=== PATIENT | male | born 1945 | race Caucasian/White ===

== ENCOUNTER 2018-03-25 18:51 | Inpatient (IN) | payer MEDICARE ==
[~2018-03-25 18:51] MED LIST: ISOVUE-370 76%-LOCM 1 ML ONE
[2018-03-25] MEDS ORDERED: Metoprolol Tartrate 5 MG/5 ML VIAL ONE (19:03)
[2018-03-25] MEDS ORDERED: methylPREDNISolone Sod Succ/PF 125 MG/2 ML VIAL ONE (19:06)
[2018-03-25 19:21] LABS: Hemoglobin 16.3 g/dL (14.0-18.0); Mean Corpuscular Hemoglobin 29.1 pg (27.0-31.0); Mean Corpuscular Volume 90.9 fl (80.0-94.0); Mean Platelet Volume 6.3 fL (7.4-10.4); Platelet Count 325 thou/uL (130-400); Red Blood Cell (RBC) Count 5.58 mill/uL (4.70-6.10); White Blood Cell (WBC) Count 20.7 thou/uL (4.8-10.8)
[2018-03-25] MEDS ORDERED: Albuterol Sulfate 2.5 mg/3 ml Neb ONE ×4 (19:28→21:05)
[2018-03-25 19:30] LABS: ALT (SGPT) 25 U/L (8-55); AST (SGOT) 17 U/L (5-34); Albumin 4.1 g/dL (3.4-4.8); Alkaline Phosphatase 75 U/L (40-150); Anion Gap 16 mmol/L (10-20); BUN (Urea Nitrogen) 14 mg/dL (8.4-25.7); Bilirubin, Total 1.5 mg/dL (0.2-1.2); Calc. Creatinine Clearance 0 mL/min (70-130); Calcium 9.7 mg/dL (7.8-10.44); Carbon Dioxide 30 mmol/L (23-31); Chloride 100 mmol/L (98-107); Estimated GFR-MDRD 68; Glucose 114 mg/dL (83-110); Magnesium 2.1 mg/dL (1.6-2.6); Protein, Total 7.1 g/dL (5.8-8.1); Sodium 142 mmol/L (136-145)
[2018-03-25 19:35] LABS: Band 1 % (5-11); CKMB 2.2 ng/mL (0-6.6); Eosinophils 1 % (0-10); Lymphocytes 8 % (21-51); MDiff Complete? YES; Monocytes 3 % (0-10); Neutrophil 87 % (42-75); PLT Morphology Comment Appears Adequate; RBC Morphology Normal; Troponin I 0.043 ng/mL (< 0.028)
[2018-03-25 20:27] LABS: INR-International Normal Ratio 1.1; Prothrombin Time 14.1 SEC (12.0-14.7)
[2018-03-25] MEDS ORDERED: Magnesium Sulfate 2 GM/100 ML BAG ONE (20:29)
[2018-03-25] MEDS ORDERED: cefTRIAXone\\ROCEPHIN 2 GM VIAL ONE (20:49)
[2018-03-25] MEDS ORDERED: Ketorolac Tromethamine 30 MG/ML VIAL ONE (21:02)
--- NOTE | 2018-03-25 21:09 | RAD ---
CHEST ONE VIEW: HISTORY: Difficulty breathing. COMPARISON: None. FINDINGS: Atherosclerosis of the aorta. Normal cardiac silhouette. The pulmonary vessels and hilum are normal . The costophrenic angles are clear. Hyperinflation without consolidation or mass. No pneumothorax or osseous abnormalities. IMPRESSION: 1. Atherosclerosis. 2. Hyperinflation/chronic obstructive pulmonary disease. POS: [facility]
[2018-03-25 22:07] LABS: Bilirubin Negative (Negative); Blood, Urine Negative (Negative); Clarity CLEAR (Clear); Glucose, Urine (Dipstick) Negative (Negative); Leukocyte Negative (Negative); Nitrite Negative (Negative); Protein, Urine (Dipstick) 100 mg/dL (Neg-Trace); Specific Gravity, Urine 1.016 (1.002-1.036); pH, Urine 7.5 (5.0-9.0)
[2018-03-25 22:08] LABS: Bacteria/HPF None Seen HPF (None Seen); Hyaline Casts/LPF 0-3 HYALINE CAST LPF (0-3 Hyaline); Pathc Cast-AUWi Flag 0.14 (0-2.49); RBC/HPF 0-3 HPF (0-3); Squamous Epithelial 0-3 HPF (0-3); WBC/HPF 0-3 HPF (0-3)
--- NOTE | 2018-03-25 22:10 | CT ---
CT ANGIOGRAM CHEST: HISTORY: Shortness of breath. COMPARISON: None. TECHNIQUE: A CT angiogram of the chest is performed in the axial plane. Three-dimension reformatted images are submitted for interpretation. FINDINGS: The trachea and central bronchi appear to be patent. There is deformity of the trachea, which is lik shannan secondary to COPD/tracheal malacia. No obstructing masses. Emphysematous changes in the lung pa renchyma. No suspicious masses or consolidation. No pneumothorax. No pleural effusion. The visualized upper solid organs are grossly unremarkable. Evaluation is limited by motion degradat ion. There is no mediastinal mass, lymphadenopathy, or hematoma. Heart size is within normal limits. No pericardial effusion. Coronary artery calcifications are identified. There are no lytic or blastic lesions in the osseous structures. Adequate contrast opacification in the pulmonary arterial system, to the level of the segmental arter ies. No filling defect to suggest thromboembolism. IMPRESSION: 1. No evidence of pulmonary artery embolism to the level of the segmental arteries. 2. 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 No evidence of a mass within the trachea. POS: [facility]
[2018-03-26] MEDS ORDERED: Albuterol Sulfate 2.5 mg/3 ml Neb NEB PRN (01:15)
[2018-03-26 01:24] VITALS: BMI 21.9
[2018-03-26] MEDS ORDERED: hydrALAZINE 20 MG/ML VIAL SLOW IVP PRN (04:12)
[2018-03-26] MEDS ORDERED: Benzonatate 100 MG CAP PO PRN (04:12)
[2018-03-26] MEDS ORDERED: cloNIDine 0.1 MG TAB PO PRN (04:12)
[2018-03-26] MEDS ORDERED: Ondansetron ODT 4 MG TAB PO PRN (04:12)
[2018-03-26] MEDS ORDERED: Ondansetron HCl/PF 4 MG/2 ML Vial IVP PRN (04:12)
[2018-03-26] MEDS ORDERED: Acetaminophen 500 MG TAB PO PRN (04:12)
[2018-03-26] MEDS ORDERED: cefTRIAXone\\ROCEPHIN 2 GM in Sodium Chloride 0.9% 100 ML IVPB SCH (08:00)
[2018-03-26] MEDS ORDERED: Famotidine 20 MG TAB PO SCH (09:00)
[2018-03-26] MEDS ORDERED: Prevnar 13-Val Conj/PF 0.5 ML SYRINGE IM ONE (09:00)
--- NOTE | 2018-03-26 09:49 | PDOC.PN ---
- Subjective Encounter Start Date: 03/26/18 Encounter Start Time: 09:48 Mr. Posada was seen today in follow-up. He says he was feling fine until this morning, when he has gotten short of breath once again. He has audible wheezing from across the room. - Objective Resuscitation Status: Resuscitation Status FULL:Full Resuscitation MAR Reviewed: Yes Vital Signs & Weight: Vital Signs (12 hours) Temp Pulse Resp BP Pulse Ox 03/26/18 09:40 97.9 F 89 20 174/83 H 94 L 03/26/18 00:40 98.0 F 96 18 137/85 94 L Weight Weight 157 lb 9.6 oz I&O: 03/25/18 03/26/18 03/27/18 06:59 06:59 06:59 Output Total 250 Balance -250 Result Diagrams: 03/25/18 19:04 03/25/18 19:04 Phys Exam - Physical Examination HEENT: PERRLA Respiratory: wheezing present + wheezing bilaterally with a long expiratory phase decreased air movement Cardiovascular: RRR, no significant murmur, no rub Gastrointestinal: soft, non-tender, positive bowel sounds Musculoskeletal: no edema Dx/Plan (1) Acute and chronic respiratory failure Code(s): J96.20 - ACUTE AND CHR RESP FAILURE, UNSP W HYPOXIA OR HYPERCAPNIA Status: Acute (2) COPD exacerbation Code(s): J44.1 - CHRONIC OBSTRUCTIVE PULMONARY DISEASE W (ACUTE) EXACERBATION Status: Acute (3) Hypotension Status: Acute - Plan * Acute respiratory failure due to COPD exacerbation- continue Duonebs, and Steroids IV * Will add empiric antibiotics, due to the elevated WBC count * HTN - blood pressure is stable * ? DM- will monitor his blood glucose, and cover with SSI if needed * Continue home medications for BPH, and COPD * No evidence of AFIB * Add Lovenox- for DVT prophylaxis.
[2018-03-26] MEDS ORDERED: Dextrose 5% in Water 1,000 ML IV PRN (09:58)
[2018-03-26] MEDS ORDERED: Dextrose 50% Abboject 50 ML SYRINGE SLOW IVP PRN (09:58)
[2018-03-26] MEDS: cefTRIAXone\\ROCEPHIN 1 GM in Sodium Chloride 0.9% 100 ML IVPB SCH (10:22)
[2018-03-26] MEDS: Azithromycin 500 MG in Sodium Chloride 0.9% 250 ML 250 ML IVPB SCH (11:22)
--- NOTE | 2018-03-26 11:50 | HP ---
DATE OF ADMISSION: 03/25/2018 PRIMARY CARE PROVIDER: Dr. Blount in [facility], [place]. CHIEF COMPLAINT: Shortness of breath. HISTORY OF PRESENT ILLNESS: This is a 72-year-old male who was life-flighted to [facility] Emergency Department from [facility] after patient states he had increasing shortness of breath in last 24 to 48 hours. The patient states he has a history of chronic obstructive pulmona ry disease with treatment to include metered-dose inhalers and home nebulizer. The patient states he has been using these medications appropriately and frequently over the last several days. The patie nt apparently had sought medical attention x2 episodes prior to the admission to [facility] in the last month. The patient denies any current smoking over the last 15 years, but does have a history of COPD. The patient denies any specific documented fever or chills or family me mbers with similar symptoms. The patient denied any blood in the sputum or decreased exercise tolera nce. In the emergency room, the patient underwent general evaluation including portable chest x-ray showing no acute cardiopulmonary process. Hyperinflation changes consistent with chronic obstructive pulmonary disease. CT angiogram of the chest dated 03/25/2018, showed no evidence for pulmonary art marquise embolism. EKG dated 03/25/2018, by my interpretation shows sinus mechanism with heart rates in t he 90s. Normal R-wave progression noted in the precordial leads. Left axis deviation. ASSESSMENT AND PLAN: 1. Acute dyspnea. Suspect multifactorial including chronic obstructive pulmonary disease. Continue general pulmonary supportive measures. Oxygen supplementation as clinically indicated. 2. Chronic obstructive pulmonary disease. Questionable acute exacerbation. We will continue genera l supportive management. Oxygen to maintain O2 saturations greater than or equal to 90%. DuoNeb 3 m L nebulized q.i.d. p.r.n. 3. Neutrophilic leukocytosis. Suspect secondarily to #1. No focal infectious process identified. Repeat CBC in the a.m. 4. Atrial arrhythmia. Questionable atrial fibrillation with rapid ventricular response in the emerg ency room. The patient currently in sinus rhythm. We will continue supportive management. Continue telemetry monitoring. 5. Prophylaxis. Sequential compression devices while in bed. Protonix 40 mg p.o. daily. 6. Code status is FULL. Surrogate medical decision maker is patient's son, Dwain Posada.
[2018-03-26] MEDS: Isosorbide Mononitrate 20 MG TAB PO SCH ×2 (14:16→21:31)
[2018-03-26] MEDS: hydrALAZINE 25 MG TAB PO SCH ×2 (14:16→21:30)
[2018-03-26] MEDS: HumaLOG 300 UNITS/3 ML VIAL SC PRN (17:31)
[2018-03-26] MEDS: Budesonide 0.5 MG/2 ML NEB NEB SCH (20:05)
[2018-03-26] MEDS ORDERED: Non-Formulary Item 1 EACH (Insulin Glargine,Hum.Rec.Anlog [Lantus Solostar] 30 UNIT) SQ SCH (21:00)
[2018-03-26] MEDS: Gabapentin 300 MG CAP PO SCH (21:30)
[2018-03-26] MEDS: Bupropion 150 MG XL TAB PO SCH (21:30)
[2018-03-26] MEDS: Insulin Glargine 30 UNITS in Pre-Filled Syringe 1 EACH SC SCH (21:31)
[2018-03-26] MEDS: Rosuvastatin 20 MG TAB PO SCH (21:31)
[2018-03-27 05:44] LABS: Band 2 % (5-11); Hemoglobin 12.6 g/dL (14.0-18.0); Lymphocytes 12 % (21-51); MDiff Complete? YES; Mean Corpuscular HGB CONC 32.1 g/dL (32.0-36.0); Mean Corpuscular Hemoglobin 29.3 pg (27.0-31.0); Mean Corpuscular Volume 91.3 fl (80.0-94.0); Mean Platelet Volume 6.9 fL (7.4-10.4); Monocytes 4 % (0-10); Neutrophil 82 % (42-75); PLT Morphology Comment Appears Adequate; Platelet Count 250 thou/uL (130-400); RBC Distribution Width 14.2 % (11.5-14.5); Red Blood Cell (RBC) Count 4.29 mill/uL (4.70-6.10); White Blood Cell (WBC) Count 19.2 thou/uL (4.8-10.8)
[2018-03-27 06:20] LABS: Anion Gap 10 mmol/L (10-20); BUN (Urea Nitrogen) 35 mg/dL (8.4-25.7); Calc. Creatinine Clearance 61 mL/min (70-130); Calcium 8.2 mg/dL (7.8-10.44); Carbon Dioxide 26 mmol/L (23-31); Chloride 105 mmol/L (98-107); Estimated GFR-MDRD 66; Glucose 247 mg/dL (83-110); Potassium 4.2 mmol/L (3.5-5.1); Sodium 137 mmol/L (136-145)
[2018-03-27] MEDS: Budesonide 0.5 MG/2 ML NEB NEB SCH ×2 (07:23→18:18)
[2018-03-27] MEDS: HumaLOG 300 UNITS/3 ML VIAL SC PRN ×3 (08:25→21:16)
[2018-03-27] MEDS: Potassium Chloride 10 MEQ TAB PO SCH (08:28)
[2018-03-27] MEDS: hydrALAZINE 25 MG TAB PO SCH ×3 (08:28→21:10)
[2018-03-27] MEDS: Isosorbide Mononitrate 20 MG TAB PO SCH ×3 (08:29→21:09)
[2018-03-27] MEDS: Bumetanide 1 MG TAB PO SCH (08:29)
[2018-03-27] MEDS: Bupropion 150 MG XL TAB PO SCH ×2 (08:29→21:11)
[2018-03-27] MEDS: Tamsulosin HCl 0.4 MG CAP PO SCH (08:29)
[2018-03-27] MEDS: Clopidogrel Bisulfate 75 MG TAB PO SCH (08:29)
[2018-03-27] MEDS: Enoxaparin Sodium 40 MG/0.4 ML SYRINGE SC SCH (08:29)
[2018-03-27] MEDS: cefTRIAXone\\ROCEPHIN 1 GM in Sodium Chloride 0.9% 100 ML IVPB SCH (08:30)
[2018-03-27] MEDS: Insulin Glargine 20 UNITS in Pre-Filled Syringe 1 EACH SC SCH (08:30)
[2018-03-27] MEDS: Azithromycin 500 MG in Sodium Chloride 0.9% 250 ML 250 ML IVPB SCH (08:31)
[2018-03-27] MEDS ORDERED: Non-Formulary Item 1 EACH (Insulin Glargine,Hum.Rec.Anlog [Lantus Solostar] 20 UNIT) SQ SCH (09:00)
[2018-03-27] MEDS ORDERED: Dextrose 50% Abboject 50 ML SYRINGE SLOW IVP PRN (10:31)
[2018-03-27] MEDS ORDERED: Dextrose 5% in Water 1,000 ML IV PRN (10:31)
--- NOTE | 2018-03-27 10:34 | PDOC.PN ---
- Subjective Encounter Start Date: 03/27/18 Encounter Start Time: 10:32 Mr. Posada was seen in follow-up of COPD exacerbation. He looks more comfortable than yesterday, but says he had quite a bit of dyspnea last night when he got up to go to the bathroom. He has not gotten up this morning. - Objective Resuscitation Status: Resuscitation Status FULL:Full Resuscitation MAR Reviewed: Yes Vital Signs & Weight: Vital Signs (12 hours) Temp Pulse Resp BP Pulse Ox 03/27/18 08:28 78 03/27/18 07:30 98.6 F 78 22 H 132/75 100 03/27/18 07:24 100 14 03/27/18 04:06 99 03/27/18 01:07 85 18 99 Weight Weight 157 lb 9.6 oz I&O: 03/26/18 03/27/18 03/28/18 06:59 06:59 06:59 Intake Total 240 Output Total 250 350 Balance -250 -110 Result Diagrams: 03/27/18 04:18 03/27/18 04:18 Additional Labs: Accuchecks 03/27/18 03/26/18 03/26/18 05:54 20:05 17:11 POC Glucose 227 H 282 H 391 H 03/26/18 11:41 POC Glucose 283 H Phys Exam - Physical Examination HEENT: PERRLA Respiratory: wheezing present decreased air movement, but better today Cardiovascular: RRR, no significant murmur, no rub Gastrointestinal: soft, non-tender, positive bowel sounds Musculoskeletal: no edema Dx/Plan (1) Acute and chronic respiratory failure Code(s): J96.20 - ACUTE AND CHR RESP FAILURE, UNSP W HYPOXIA OR HYPERCAPNIA Status: Acute (2) COPD exacerbation Code(s): J44.1 - CHRONIC OBSTRUCTIVE PULMONARY DISEASE W (ACUTE) EXACERBATION Status: Acute (3) Hypotension Status: Acute - Plan * Acute on chronic respiratory failure with hypoxemia- will add a long acting beta agonist * Continue Duonebs, and Steroids * Continue empiric antibiotics * Encourage ambulation- PT has been ordered * DM- blood glucose is elevated- will increase the SSI * HTN- blood pressure is stable.
[2018-03-27] MEDS: Mometasone/Formoterol 120 PUFF INHALER INH SCH (18:18)
[2018-03-27] MEDS: Rosuvastatin 20 MG TAB PO SCH (21:10)
[2018-03-27] MEDS: guaiFENesin ER 600 MG TAB PO SCH (21:10)
[2018-03-27] MEDS: Gabapentin 300 MG CAP PO SCH (21:10)
[2018-03-27] MEDS: Insulin Glargine 30 UNITS in Pre-Filled Syringe 1 EACH SC SCH (21:14)
[2018-03-28] MEDS: Budesonide 0.5 MG/2 ML NEB NEB SCH ×2 (07:11→18:41)
[2018-03-28] MEDS: Mometasone/Formoterol 120 PUFF INHALER INH SCH ×2 (07:13→18:41)
[2018-03-28] MEDS: hydrALAZINE 25 MG TAB PO SCH ×3 (08:51→20:40)
[2018-03-28] MEDS: guaiFENesin ER 600 MG TAB PO SCH ×2 (08:52→20:40)
[2018-03-28] MEDS: Potassium Chloride 10 MEQ TAB PO SCH (08:52)
[2018-03-28] MEDS: Clopidogrel Bisulfate 75 MG TAB PO SCH (08:52)
[2018-03-28] MEDS: Tamsulosin HCl 0.4 MG CAP PO SCH (08:52)
[2018-03-28] MEDS: cefTRIAXone\\ROCEPHIN 1 GM in Sodium Chloride 0.9% 100 ML IVPB SCH (08:53)
[2018-03-28] MEDS: Enoxaparin Sodium 40 MG/0.4 ML SYRINGE SC SCH (08:55)
[2018-03-28] MEDS: Insulin Glargine 20 UNITS in Pre-Filled Syringe 1 EACH SC SCH (08:55)
[2018-03-28] MEDS: Azithromycin 500 MG in Sodium Chloride 0.9% 250 ML 250 ML IVPB SCH (09:06)
[2018-03-28] MEDS: Bupropion 150 MG XL TAB PO SCH ×2 (09:34→20:43)
[2018-03-28] MEDS: Isosorbide Mononitrate 20 MG TAB PO SCH ×3 (09:34→20:43)
[2018-03-28] MEDS: Bumetanide 1 MG TAB PO SCH (09:34)
[2018-03-28] MEDS: HumaLOG 300 UNITS/3 ML VIAL SC PRN ×3 (12:32→20:43)
--- NOTE | 2018-03-28 13:00 | PDOC.PN ---
- Subjective Encounter Start Date: 03/28/18 Encounter Start Time: 12:57 Mr. Posada was seen today in follow-up. 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 - Objective Resuscitation Status: Resuscitation Status FULL:Full Resuscitation MAR Reviewed: Yes Vital Signs & Weight: Vital Signs (12 hours) Temp Pulse Resp BP BP Pulse Ox Pulse Ox 03/28/18 10:50 97.8 F 66 16 111/61 96 03/28/18 09:08 96 03/28/18 08:51 81 170/80 H 03/28/18 08:00 97.7 F 81 12 03/28/18 07:30 97.7 F 62 12 170/80 H 93 L 03/28/18 07:11 69 16 97 03/28/18 02:49 98 Pulse Ox 03/28/18 10:50 03/28/18 09:08 95 03/28/18 08:51 03/28/18 08:00 03/28/18 07:30 03/28/18 07:11 03/28/18 02:49 Weight Weight 157 lb 9.6 oz I&O: 03/27/18 03/28/18 03/29/18 06:59 06:59 06:59 Intake Total 240 790 Output Total 350 600 Balance -110 190 Result Diagrams: 03/27/18 04:18 03/27/18 04:18 Additional Labs: Accuchecks 03/28/18 03/28/18 03/27/18 10:51 05:28 19:31 POC Glucose 172 H 202 H 276 H 03/27/18 16:29 POC Glucose 102 Phys Exam - Physical Examination HEENT: PERRLA Respiratory: wheezing present, clear to auscultation bilateral Cardiovascular: RRR, no significant murmur, no rub Gastrointestinal: soft, non-tender, positive bowel sounds Musculoskeletal: no edema Dx/Plan (1) Acute and chronic respiratory failure Code(s): J96.20 - ACUTE AND CHR RESP FAILURE, UNSP W HYPOXIA OR HYPERCAPNIA Status: Acute (2) COPD exacerbation Code(s): J44.1 - CHRONIC OBSTRUCTIVE PULMONARY DISEASE W (ACUTE) EXACERBATION Status: Acute (3) Hypotension Status: Acute - Plan * COPD- he is beginning to turn the corner. Will change the steroids to oral, and change to oral antibiotics * Continue Mindy, and Jaja * He has oxygen at home, but would like a portable tank- I have placed an order to case management * Hopefully home tomorrow.
[2018-03-28] MEDS: Gabapentin 300 MG CAP PO SCH (20:39)
[2018-03-28] MEDS: Cefdinir 300 MG CAP PO SCH (20:39)
[2018-03-28] MEDS: Rosuvastatin 20 MG TAB PO SCH (20:39)
[2018-03-28] MEDS: Insulin Glargine 30 UNITS in Pre-Filled Syringe 1 EACH SC SCH (20:41)
[2018-03-29] MEDS: Budesonide 0.5 MG/2 ML NEB NEB SCH (06:30)
[2018-03-29] MEDS: Mometasone/Formoterol 120 PUFF INHALER INH SCH (06:33)
[2018-03-29 07:56] VITALS: BP 146/70
[2018-03-29] MEDS ORDERED: predniSONE 20 MG TAB PO SCH (08:00)
[2018-03-29] MEDS: Enoxaparin Sodium 40 MG/0.4 ML SYRINGE SC SCH (08:28)
[2018-03-29] MEDS: guaiFENesin ER 600 MG TAB PO SCH (08:28)
[2018-03-29] MEDS: Potassium Chloride 10 MEQ TAB PO SCH (08:28)
[2018-03-29] MEDS: Cefdinir 300 MG CAP PO SCH (08:29)
[2018-03-29] MEDS: Bumetanide 1 MG TAB PO SCH (08:29)
[2018-03-29] MEDS: Bupropion 150 MG XL TAB PO SCH (08:29)
[2018-03-29] MEDS: Isosorbide Mononitrate 20 MG TAB PO SCH (08:29)
[2018-03-29] MEDS: Clopidogrel Bisulfate 75 MG TAB PO SCH (08:29)
[2018-03-29] MEDS: Tamsulosin HCl 0.4 MG CAP PO SCH (08:29)
[2018-03-29] MEDS: hydrALAZINE 25 MG TAB PO SCH (08:29)
[2018-03-29] MEDS: Insulin Glargine 20 UNITS in Pre-Filled Syringe 1 EACH SC SCH (08:31)
[2018-03-29 09:04] VITALS: TEMP 98.3
--- NOTE | 2018-03-29 12:07 | PDOC.PN ---
- Subjective Encounter Start Date: 03/29/18 Encounter Start Time: 12:05 Mr. Posada was seen today in follow-up. He is feeling better. His son is at the bedside, and notes that he had some trouble with his oxygen tank at home. - Objective Resuscitation Status: Resuscitation Status FULL:Full Resuscitation MAR Reviewed: Yes Vital Signs & Weight: Vital Signs (12 hours) Temp Pulse Resp BP Pulse Ox 03/29/18 08:29 60 03/29/18 08:00 98.3 F 60 18 97 03/29/18 07:56 97.5 F L 60 20 146/70 H 95 03/29/18 06:30 69 18 95 Weight Weight 157 lb 9.6 oz I&O: 03/28/18 03/29/18 03/30/18 06:59 06:59 06:59 Intake Total 790 2070 240 Output Total 600 1200 Balance 190 870 240 Result Diagrams: 03/27/18 04:18 03/27/18 04:18 Additional Labs: Accuchecks 03/29/18 03/29/18 03/28/18 11:05 04:19 19:20 POC Glucose 191 H 138 H 222 H 03/28/18 03/28/18 16:07 05:28 POC Glucose 390 H 202 H Phys Exam - Physical Examination HEENT: PERRLA Respiratory: no wheezing, no rales, no rhonchi, clear to auscultation bilateral Cardiovascular: RRR, no significant murmur, no rub Gastrointestinal: soft, non-tender, positive bowel sounds Musculoskeletal: no edema Dx/Plan (1) Acute and chronic respiratory failure Code(s): J96.20 - ACUTE AND CHR RESP FAILURE, UNSP W HYPOXIA OR HYPERCAPNIA Status: Acute (2) COPD exacerbation Code(s): J44.1 - CHRONIC OBSTRUCTIVE PULMONARY DISEASE W (ACUTE) EXACERBATION Status: Acute (3) Hypotension Status: Acute - Plan * COPD exacerbation- improved * He now remembers he has an Advair inhaler at home. He has not been using it regularly. * He is clinically stable for discharge home..
--- NOTE | 2018-03-29 12:33 | DIS ---
DATE OF ADMISSION: 03/25/2018 DATE OF DISCHARGE: 03/29/2018 PRIMARY CARE PHYSICIAN: Dr. Blount, [place], [place]. DISCHARGE DISPOSITION: Home. PRIMARY DISCHARGE DIAGNOSES: 1. Acute on chronic respiratory failure with hypoxemia secondary to chronic obstructive pulmonary di sease exacerbation. 2. History of atrial arrhythmia. DISCHARGE MEDICATIONS: Include the patient has an Advair inhaler at home, he had not been using it r egularly, unsure of the dose, but he is to continue that, Advair inhaler. Also, continue Flomax 0.4 mg daily, Crestor 40 mg at bedtime, prednisone 40 mg for just 2 more days, potassium chloride 10 mEq daily, omeprazole 40 mg daily, metoprolol XL 50 mg daily, isosorbide mononitrate 20 mg t.i.d., Lantus insulin he says he uses 30 units twice a day, hydralazine 25 mg t.i.d., gabapentin 600 mg at bedtime , Plavix 75 mg daily, Omnicef 300 mg twice a day for 3 days, Wellbutrin 150 mg twice a day, Bumex 1 m g daily, and budesonide inhaler twice a day. PROCEDURES DONE DURING ADMISSION: The patient had a CT angiogram of the chest, which was negative fo r PE. The patient also had an echocardiogram, in which the ejection fraction was estimated at 55%-60 %. There was some E to A flow reversal noted suggestive of diastolic dysfunction. CODE STATUS: FULL CODE. ALLERGIES: No known drug allergies. HOSPITAL COURSE: Mr. Posada is a pleasant 72-year-old gentleman, who presented to the emergency room , complaining of shortness of breath, which has been going on for the last couple of days. He was ev aluated in the ER. There was no notice of any infiltrate on CT scan and it is suspected that the DIP FILLER D exacerbation was multifactorial, likely due to malfunctioning oxygen tank at home according to the patient's son and then also it was noted from the staff at [facility] that he has not been refillin g his oxygen tanks and also the patient himself admitted that he has an Advair inhaler, which he has not been using on a regular basis. Therefore, I suspect these factors contributed to the COPD exacer bation. He was stabilized once in the hospital, instructed on the proper use of the inhalers and jihan l be discharged home on empiric antibiotics as well as a very short course of steroids.
--- NOTE | 2018-04-03 10:52 | PQF ---
[employer] General Operations Manager Crystal Reports Winform ViewerHUJERICA BOYER CHARLES DO [id number] [id number] [id number] CLINICAL DOCUMENTATION CLARIFICATION FORM: POST DISCHARGE Addendum to original discharge summary date: ____ Late entry note date: __ Please exercise your independent, professional judgment in responding to the clarification form. Clinical indicators are provided on the bottom of this form for your review Diagnosis: Acute and chronic respiratory failure with hypoxia Present on Admission (POA): [ ] Yes [ ] No [ ] Unable to determine Coding guidelines require hospitals to identify whether a diagnosis was present on admission (POA) or not. To accurately assign the appropriate POA indicator, this information must be clearly documented within the medical record. CLINICAL INDICATORS - SIGNS / SYMPTOMS / LABS Documentation to support POA status RISK FACTORS: Documentation to support POA status-----Reviewer - Noted in the ED to not be in respiratory distress, with H&P documenting acute dyspnea. It does, however, appear pt meets criteria for resp failure in the ED w sats at 94% on supplemental O2 and an increased pulse up to 96- RR maintained around 18-20. COPD with acute exacerbation TREATMENT: Documentation to support POA status- Oxygen (This form is maintained as a part of the permanent medical record) [employer] General Operations Manager [employer] [id number] [employer]. All Rights Reserved Lisa [email or web address] [phone] [email or web address]
== END 2018-03-29 13:25 | disposition home or self-care (01) | DRG 189 ==
LOC: ERS 18:51 → 2NO 21:45 → T4-B 03-27 15:25
PROVIDERS: ADMIT Family Medicine; ATTEND Family Medicine
DX: J96.21 Acute and chronic respiratory failure with hypoxia (principal); J44.1 Chronic obstructive pulmonary disease with (acute) exacerbation; D72.829 Elevated white blood cell count, unspecified; I49.9 Cardiac arrhythmia, unspecified; E11.65 Type 2 diabetes mellitus with hyperglycemia; I95.9 Hypotension, unspecified; Z99.81 Dependence on supplemental oxygen; Z91.14 Patient's other noncompliance with medication regimen
CPT/HCPCS: 36415; 36416; 71045; 71275; 80048; 80053; 81003; 81015; 82553; 83735; 83880; 84443; 84484; 85007; 85025; 85027; 85610; 87040; 87086; 93005; 93306; 96361; 96365; 96375; A4216; G8978-GP-CM; G8979-GP-CK; J0282; J0456; J0696; J1650; J1885; J2920; J2930; J3475; J7050; J7506; J7611; J7620; J7626